=== PATIENT | male | born 1990 | race Caucasian/White ===

== ENCOUNTER → 2017-09-04 | Outpatient (REF) | payer BC | LOC: M LAB REF 09:14 | DX: J00 Acute nasopharyngitis [common cold] (principal) | CPT/HCPCS: 87081 ==

== ENCOUNTER 2022-05-05 10:47 | Emergency (ER) | payer BC ==
[~2022-05-05] VITALS: Ht 162.6 cm; Wt 95.1 kg
[2022-05-05] MEDS ORDERED: BOOSTRIX/ADACEL VACCINE (DIPHTH/PERTUSS/ACELL/TETANUS) 0.5ML SYR IM ONE (12:35)
[2022-05-05] MEDS ORDERED: LIDOCAINE W/EPINEPHRINE 1% 20ML VIAL SC ONE (12:40)
[2022-05-05] MEDS ORDERED: NEOSPORIN OINT 0.9 GM PKT TOP ONE (13:05)
[2022-05-05 13:15] VITALS: BP 167/84
== END 2022-05-05 13:17 | disposition home or self-care (01) ==
LOC: M ED 10:47
DX: S61.412A Laceration without foreign body of left hand, initial encounter (principal); W26.8XXA Contact with other sharp object(s), not elsewhere classified, initial encounter; Y92.009 Unspecified place in unspecified non-institutional (private) residence as the place of occurrence of the external cause; Z23 Encounter for immunization